=== PATIENT | male | born 1995 | race Caucasian/White ===

== ENCOUNTER 2022-11-26 11:03 | Emergency (ER) | payer SELFPAY ==
[~2022-11-26] VITALS: Ht 167.6 cm; Wt 77.1 kg
--- NOTE | 2022-11-26 12:30 | NUR ---
Pt arrived w/ c/o L Arm Pain d/t injury/fall. Seen by Dr. Mack for MSE.
[2022-11-26] MEDS ORDERED: IBUP-1955 PO (12:44)
[2022-11-26] MEDS ORDERED: HYDR-3972 PO (12:44)
[2022-11-26] MEDS ORDERED: IBUPROFEN 600 MG TABLET PO ONE (12:45)
[2022-11-26] MEDS ORDERED: HYDROCODONE/APAP 5-325MG TABLET PO ONE (12:45)
[2022-11-26] MEDS ORDERED: IBUPROFEN 600 MG TABLET ONE (12:53)
[2022-11-26] MEDS ORDERED: HYDROCODONE/APAP 5-325MG TABLET ONE (12:54)
[2022-11-26 13:00] VITALS: BP 107/68
--- NOTE | 2022-11-26 13:00 | NUR ---
Patient discharged to home in stable condition. Written and verbal after care instructions given. Patient verbalizes understanding of instructions. Stressed follow up or return to ER for worsening s/s.
== END 2022-11-26 13:02 | disposition home or self-care (01) ==
LOC: ER 11:03
DX: S43.005A Unspecified dislocation of left shoulder joint, initial encounter (principal); W11.XXXA Fall on and from ladder, initial encounter; Y92.89 Other specified places as the place of occurrence of the external cause; Y99.0 Civilian activity done for income or pay
CPT/HCPCS: 73030; A4663